=== PATIENT | female | born 1945 | race Caucasian/White ===

== ENCOUNTER → 2016-11-28 | Outpatient (CLI) | payer OTHER ==
--- NOTE | 2016-11-28 09:29 | MA ---
Right Diagnostic Digital Mammogram with iCAD Clinical Indications: Asymmetric density on recent screening mammogram. Technique: Digital spot compression CC, spot mediolateral oblique and true lateral views. This exami nation was processed by the iCAD computer-aided detection system. Comparison: Recent mammogram, 2015, 2013, 2010. Breast Density: C, 50-75%. Findings: Previous asymmetric density persists on the spot compression view. On the true lateral view , it is difficult to localize although may be in the upper-outer quadrant. Margins appear smooth and well defined and may represent an intramammary lymph node. However, further characterization with ult rasound is recommended. Impression: ACR BI-RADS 0: Needs further imaging. Recommendation: Ultrasound of the right breast upper-outer quadrant which will be subsequently perfor med. Please see ultrasound report and recommendations. Findings and recommendations have been discussed with the patient who agrees with the plan. [facility] will send a result letter to the patient. The patient's information is entered into a reminder system with a target due date for her next mammo gram.
--- NOTE | 2016-11-28 10:01 | US ---
Ultrasound Right Breast History: Nodular density on mammography upper outer quadrant right breast. Comparison: Prior mammograms most recent from today. Technique: Ultrasound imaging of the upper outer quadrant of the right breast from the 9 to the 12 o' clock position was performed by the [employer] school special education teacher and me. Findings: In the right breast at the 10 o'clock position 8 cm from the nipple there is a benign simpl e cyst measuring 5 x 4 x 3 mm which corresponds to the mammogram findings. No suspicious lesions iden tified. No solid masses noted in the upper outer quadrant right breast. Impression: 1. BI-RADS 2: Benign findings 2. Simple cyst right breast 10 o'clock position measuring 5 x 4 x 3 mm which corresponds to the mammo gram finding. 3. No suspicious findings. 4. Recommend annual mammograms with next bilateral screening mammogram September 2017. Findings and recommendations have been discussed with the patient who agrees with the plan.
== END ==
LOC: BRMIMAGING 08:51
PROVIDERS: ATTEND Physician Assistant Medical
DX: N60.01 Solitary cyst of right breast (principal)
CPT/HCPCS: 76641; G0206